=== PATIENT | female | born 1985 | race Caucasian/White ===

== ENCOUNTER 2020-01-21 10:52 | Outpatient (CLI) | payer OTHER, SELFPAY ==
[2020-01-21 11:21] LABS: Basophils Percent Auto 0.4 % (0.2-1.2); Eosinophils Absolute Auto 0.2 K/mm3 (0-0.3); Eosinophils Percent Auto 1.5 % (0-4.4); Hematocrit 34.8 % (37.0-47.0); Hemoglobin 11.7 g/dL (12.0-15.0); Immature Granulocyte Absolute 0.04 K/mm3 (0.00-0.031); Immature Granulocyte Percent A 0.4 % (0-0.5); Lymphocytes Absolute Auto 2.26 K/mm3 (0.9-3.2); Lymphocytes Percent Auto 22.3 % (18.3-44.2); Mean Corpuscular HGB Conc 33.6 g/dl (32-36); Mean Corpuscular Hemoglobin 32.1 pg (26-34); Mean Corpuscular Volume 95.6 fl (80-100); Mean Platelet Volume 10.3 fl (7.4-10.4); Monocytes Absolute Auto 0.6 K/mm3 (0.1-0.6); Monocytes Percent Auto 5.4 % (2.6-8.5); Neutrophils Absolute Auto 7.1 K/mm3 (1.3-6.7); Platelet Count Result 357 k/mm3 (150-375); Red Blood Count 3.64 M/mm3 (4.2-5.4); Red Cell Distribution Width 11.7 % (11.5-14.5); White Blood Count 10.1 K/mm3 (4.5-10.0)
[2020-01-21 11:28] LABS: Add Urine Microscopic? YES; Appearance Urine Clear (Clear); Bacteria Urine Trace /hpf; Bilirubin Urine Negative (Negative); Blood Urine Negative (Negative); Color Urine Yellow (Yellow); Glucose Urine UA Negative (Negative); Ketones Urine Negative (Negative); Leukocyte Esterase Ur Trace LEU/UL (NEGATIVE); Mucus Urine Rare /lpf; Nitrate Urine Negative (Negative); Protein Urine Negative (Negative); RBC Urine 0-2 /hpf (0-2); Specific Grav Ur 1.019 (1.001-1.035); Squamous Epithelial Cell Urine Many /hpf (Few); Urobilinogen Urine Negative mg/dL (<2.0); WBC Urine 0-3 /hpf (0-3)
[2020-01-21 12:10] LABS: Vitamin D 25 Hydroxy 34.3 ng/mL
[2020-01-21 12:24] LABS: Hepatitis B Surface Antigen Negative (Negative)
[2020-01-21 12:40] LABS: Hepatitis C Virus Antibody Negative (Negative)
[2020-01-22 08:21] LABS: Rapid Plasma Reagin Non-Reactive (NonReactive)
[2020-01-26 23:52] LABS: Hematocrit 35.6 % (35.0-45.0); Hemoglobin 11.9 g/dL (11.7-15.5); MCH 32.8 pg (27.0-33.0); MCV 97.9 FL (80.0-100.0); RDW 12.2 % (11.0-15.0); Red Blood Cell Count 3.64 Mill/uL (3.80-5.10)
[2020-01-28 19:01] LABS: CF Result NEGATIVE (NEGATIVE)
== END 2020-01-21 10:53 | disposition home or self-care (01) ==
LOC: ANHLAB 10:54
PROVIDERS: PCP Obstetrics & Gynecology; Visit Provider Obstetrics & Gynecology
DX: Z34.90 Encounter for supervision of normal pregnancy, unspecified, unspecified trimester (principal); Z3A.00 Weeks of gestation of pregnancy not specified
CPT/HCPCS: 36415; 81001; 81220; 81243; 82306; 83021; 84443; 85025; 86592; 86762; 86787; 86803; 87086; 87340

== ENCOUNTER 2020-01-29 15:01 | Outpatient (CLI) | payer OTHER, SELFPAY ==
--- NOTE | ~2020-01-29 | US_ITS ---
EXAMINATION: US OB follow up DATE: 01/29/2020 16:03 INDICATION: Uncertain dates. TECHNIQUE: Real-time ultrasound of the pelvis was performed. COMPARISON: None. FINDINGS: There is a single living fetus in vertex presentation. The placenta is posterior. heart rate i s 150 beats per minute (bpm). The amniotic fluid volume is subjectively normal. The following biometric data were obtained: Biparietal diameter (BPD): 3.4 cm; head circumference (HC): 12.6 cm; abdominal circumference (AC): 9. 2 cm; femur length (FL): 2.0 cm. These measurements are discordant with high HC/AC ratio. Estimated weight is 135 g +/- 20 g. As single measurements, these parameters are each equal to the following estimated gestational ages: BPD: 16 weeks 4 days. HC: 16 weeks 3 days. AC: 15 weeks 3 days. FL: 16 weeks 0 days. estimated gestational age based solely on measurements from this exam is 16 weeks 1 days +/- 1 weeks 1 days. IMPRESSION: 1. Single living fetus in vertex presentation. 2. Estimated weight is 135 g +/- 20 g with estimated date of delivery of 07/14/2020. 3. Discordant biometrics with high HC/AC ratio. Reviewed, dictated and finalized at location A.
== END 2020-01-29 15:02 | disposition home or self-care (01) ==
LOC: ANHIMG 15:05
PROVIDERS: PCP Obstetrics & Gynecology; Visit Provider Obstetrics & Gynecology
DX: Z32.01 Encounter for pregnancy test, result positive (principal); Z3A.16 16 weeks gestation of pregnancy
CPT/HCPCS: 76816

== ENCOUNTER 2020-04-20 08:39 | Outpatient (CLI) | payer OTHER, SELFPAY ==
[2020-04-20 09:50] LABS: Basophils Absolute Auto 0.04 K/mm3 (0.00-0.10); Basophils Percent Auto 0.3 % (0.0-1.0); Eosinophils Absolute Auto 0.14 K/mm3 (0.02-0.50); Eosinophils Percent Auto 1.1 % (1.0-6.0); Hemoglobin 10.6 g/dL (12.0-15.0); Immature Granulocyte Absolute 0.06 K/mm3 (0.00-0.00); Immature Granulocyte Percent A 0.5 % (0.0-0.0); Lymphocytes Absolute Auto 1.61 K/mm3 (1.10-4.50); Lymphocytes Percent Auto 13.2 % (18.0-42.0); Mean Corpuscular HGB Conc 33.1 g/dL (32.0-36.0); Mean Corpuscular Volume 96.7 fL (78.0-102.0); Mean Platelet Volume 9.5 fl (9.2-11.8); Monocytes Absolute Auto 0.91 K/mm3 (0.10-0.90); Monocytes Percent Auto 7.4 % (2.0-11.0); Neutrophils Absolute Auto 9.5 K/mm3 (1.7-7.2); Neutrophils Percent Auto 77.5 % (50.0-70.0); Platelet Count Result 293 K/mm3 (150-420); Red Blood Count 3.31 M/mm3 (4.20-5.40); Red Cell Distribution Width 11.9 % (11.6-14.4); White Blood Count 12.2 K/mm3 (4.8-10.8)
[2020-04-20 10:35] LABS: Glucose 1 Hour PP 50gm Dose 103 mg/dL (70-130)
== END 2020-04-20 08:40 | disposition home or self-care (01) ==
PROVIDERS: PCP Obstetrics & Gynecology; Visit Provider Obstetrics & Gynecology
DX: Z32.01 Encounter for pregnancy test, result positive (principal)
CPT/HCPCS: 36415; 82947; 85025

== ENCOUNTER 2020-04-26 15:58 | Outpatient (CLI) | payer OTHER, SELFPAY ==
[2020-04-26 16:28] LABS: Basophils Percent Auto 0.3 % (0.2-1.2); Eosinophils Absolute Auto 0.2 K/mm3 (0-0.3); Eosinophils Percent Auto 2.1 % (0-4.4); Hematocrit 30.6 % (37.0-47.0); Hemoglobin 10.4 g/dL (12.0-15.0); Immature Granulocyte Absolute 0.04 K/mm3 (0.00-0.031); Immature Granulocyte Percent A 0.3 % (0-0.5); Lymphocytes Absolute Auto 2.28 K/mm3 (0.9-3.2); Lymphocytes Percent Auto 19.7 % (18.3-44.2); Mean Corpuscular Hemoglobin 31.8 pg (26-34); Mean Corpuscular Volume 93.6 fl (80-100); Mean Platelet Volume 9.8 fl (7.4-10.4); Monocytes Absolute Auto 0.7 K/mm3 (0.1-0.6); Neutrophils Absolute Auto 8.3 K/mm3 (1.3-6.7); Neutrophils Percent Auto 71.6 % (45.5-73.1); Platelet Count Result 421 k/mm3 (150-375); Red Blood Count 3.27 M/mm3 (4.2-5.4); Red Cell Distribution Width 11.9 % (11.5-14.5); White Blood Count 11.6 K/mm3 (4.5-10.0)
[2020-04-26 16:33] LABS: Alanine Aminotransferase 43 U/L (4-35); Albumin Level 3.6 g/dL (3.5-5.1); Alkaline Phosphatase 97 U/L (38-126); Aspartate Amino Transferase 39 U/L (14-36); Bilirubin,Total 0.2 mg/dL (0.2-1.3)
[2020-04-26 18:23] LABS: HIV 1/2 Ab P24 Ag Result Negative (Negative)
[2020-04-27 07:36] LABS: Rapid Plasma Reagin Non-Reactive (NonReactive)
[2020-05-02 10:55] LABS: Chenodeoxycholic Acid 1.8 umol/L (< OR = 3.9); Cholic Acid 0.5 umol/L (< OR = 2.8); Deoxycholic Acid 0.5 umol/L (< OR = 2.3); Total Bile Acids 2.9 umol/L (< OR = 8.3)
== END 2020-04-26 15:59 | disposition home or self-care (01) ==
LOC: ANHLAB 16:00
PROVIDERS: PCP Obstetrics & Gynecology; Visit Provider Obstetrics & Gynecology
DX: Z34.93 Encounter for supervision of normal pregnancy, unspecified, third trimester (principal); Z3A.28 28 weeks gestation of pregnancy
CPT/HCPCS: 36415; 80076; 82542; 85025; 86592; 86703; G0432

== ENCOUNTER 2020-05-20 15:26 | Outpatient (CLI) | payer OTHER, SELFPAY ==
[2020-05-20 16:13] LABS: Alanine Aminotransferase 21 U/L (14-59); Albumin Level 2.8 g/dL (3.4-5.0); Alkaline Phosphatase 96 U/L (46-116); Aspartate Amino Transferase 17 U/L (15-37); Bilirubin,Total 0.2 mg/dL (0.00-1.00); Total Protein 6.3 g/dL (6.4-8.2)
[2020-05-20 16:22] LABS: Bilirubin Direct 0.1 mg/dL (0-0.2)
[2020-05-20 18:01] LABS: HIV 1 P24 AG Negative (Negative); HIV 1/2 AB Negative (Negative)
[2020-05-23 11:30] LABS: RPR Screen Non-Reactive (Non-Reactive)
[2020-05-25 19:36] LABS: Hepatitis A Antibody IgM Nonreactive; Hepatitis B Core Antibody Nonreactive (Nonreactive); Hepatitis B Surface Antigen Nonreactive (Nonreactive); Hepatitis C Signal to Cutoff 0.01 ratio (<1.00); Hepatitis C Virus Antibody Nonreactive (Nonreactive)
== END 2020-05-20 15:27 | disposition home or self-care (01) ==
LOC: CHSLAB 15:28
PROVIDERS: PCP Obstetrics & Gynecology; Visit Provider Obstetrics & Gynecology
DX: Z34.90 Encounter for supervision of normal pregnancy, unspecified, unspecified trimester (principal)
CPT/HCPCS: 36415; 80074; 80076; 86592; 86703

== ENCOUNTER 2020-06-03 14:50 | Outpatient (CLI) | payer OTHER, SELFPAY ==
[2020-06-03] MEDS: TETANUS,DIPHTHERIA,AC PERTUSSIS ADULT (0.5 ML) BOOSTRIX IM (16:30)
== END 2020-06-03 14:51 | disposition home or self-care (01) ==
LOC: ANHOBOP 15:03
PROVIDERS: Visit Provider Obstetrics & Gynecology
DX: Z34.90 Encounter for supervision of normal pregnancy, unspecified, unspecified trimester (principal); Z3A.00 Weeks of gestation of pregnancy not specified
CPT/HCPCS: 90715

== ENCOUNTER 2020-06-29 13:53 | Outpatient (CLI) | payer OTHER, SELFPAY | END 2020-06-29 15:45 | disposition home or self-care (01) | LOC: ANHOBOP 15:15 | PROVIDERS: Visit Provider Obstetrics & Gynecology | DX: Z34.93 Encounter for supervision of normal pregnancy, unspecified, third trimester (principal); Z3A.37 37 weeks gestation of pregnancy; Z23 Encounter for immunization | CPT/HCPCS: 90471; 90653; G0008 ==

== ENCOUNTER 2020-07-06 12:20 | Outpatient (RCR) | payer OTHER, SELFPAY ==
[2020-06-03 16:44] VITALS: BP 118/69
[2020-06-10 15:15] VITALS: BP 124/67; PULSE 96
[2020-06-15 12:52] VITALS: BP 127/72; PULSE 77
[2020-06-22 10:24] VITALS: BP 119/68; PULSE 81
[2020-06-29 14:49] VITALS: BP 117/62; PULSE 70
--- NOTE | 2020-06-29 15:30 | PC.NURSE ---
called Dr. Alvarado updated ultrasound result of SUDHEER 6.6, and EFW of 2857gm which is 20th percentile. okay to discharge, repeat SUDHEER and NST on Saturday.
[2020-07-02 15:20] VITALS: BP 130/75; PULSE 83
--- NOTE | ~2020-07-06 | US_ITS ---
US OB limited 06/03/2020 16:15 Indication: Evaluate amniotic fluid index. Rash. Procedure: Real-time Limited obstetrical ultrasound Comparison: 01/29/2020 Findings: There is a single living intrauterine in vertex presentation. heart rate is 130 BPM. Placenta is fundal. SUDHEER is normal measuring 12.1 cm (normal range for gestational age is 8. 1-24.8 cm). Impression: 1: Single living intrauterine in vertex presentation. 2: Normal SUDHEER measures 12.1 cm. Reviewed, dictated and finalized at location A. CONCESSION MANAGER Impression: 1: Single living intrauterine in vertex presentation. 2: Normal SUDHEER measures 12.1 cm.
--- NOTE | ~2020-07-06 | US_ITS ---
EXAMINATION: US OB follow up w BPP DATE: 06/29/2020 15:07 INDICATION: PUPS rash. Evaluate biophysical profile, amniotic fluid index and estimate weight. TECHNIQUE: Real-time pelvic ultrasound was performed. The interpreting radiologist was not present fo r the study. COMPARISON: None. FINDINGS: There is a single living fetus in vertex presentation. The placenta is posterior. heart rate i s 169 beats per minute (bpm). Oligohydramnios with amniotic fluid index measuring 6.6 cm (2.5%-5th%-9 5%: 6.6-7.5-24.4 cm at T7 weeks estimated gestational age) Biophysical profile performed by the technologist: breathing (30 sec sustained breathing in 30 minutes): 2 out of 2 movement (3 gross body movements in 30 minutes): 2 out of 2 tone (one episode of sqbuqfr-cqqipvfqt-dboifae limb movement): 2 out of 2 Amniotic fluid pocket (2 cm): 2 out of 2 Total score: 8 out of 8 IMPRESSION: 1. Single living fetus in vertex presentation with heart rate of 169 bpm. 2. Biophysical profile 8 out of 8. 3. Oligohydramnios with amniotic fluid index of 6.6 cm which is 3 standard deviations below the mean. Assess for possibility of leaking fluids. Reviewed, dictated and finalized at location A. ER REPAIRMAN IMPRESSION: 1. Single living fetus in vertex presentation with heart rate of 169 bpm. 2. Biophysical profile 8 out of 8. 3. Oligohydramnios with amniotic fluid index of 6.6 cm which is 3 standard radha ations below the mean. Assess for possibility of leaking fluids.
--- NOTE | ~2020-07-06 | US_ITS ---
EXAMINATION: US OB limited w BPP DATE: 07/06/2020 13:01 INDICATION: Pruritic urticarial papules and plaques of . Third trimester. TECHNIQUE: Real-time pelvic ultrasound was performed. COMPARISON: Ultrasound 07/02/2020 FINDINGS: There is a single living fetus in vertex presentation. The placenta is posterior. heart rate i s 140 beats per minute (bpm). The amniotic fluid index is 9.6 cm, which is normal. Biophysical profile performed by the technologist: breathing (30 sec sustained breathing in 30 minutes): 2 out of 2 movement (3 gross body movements in 30 minutes): 2 out of 2 tone (one episode of ljgbgpn-hmucqkyfk-rfizjwf limb movement): 2 out of 2 Amniotic fluid pocket (2 cm): 2 out of 2 Total score: 8 out of 8 IMPRESSION: 1. Single living fetus in vertex presentation. 2. Biophysical profile 8 out of 8. Reviewed, dictated and finalized at location B. RAL LOT ATTENDANT
--- NOTE | ~2020-07-06 | US_ITS ---
US OB limited 07/02/2020 15:15 Indication: Evaluate amniotic fluid index. Procedure: High-resolution Limited obstetrical ultrasound Comparison: 06/29/2020 Findings: There is a single living intrauterine in vertex presentation. heart rate is 137 BPM. Amniotic fluid is at lower limits of normal measuring 7.5 cm (normal range 7.3-23.9 cm). Pl acenta is posterior without previa. Impression: 1: SUDHEER lower limits of normal measuring 7.5 cm. Reviewed, dictated and finalized at location A. ENT NURSE Impression: 1: SUDHEER lower limits of normal measuring 7.5 cm.
[2020-07-06 13:50] VITALS: BP 127/79; PULSE 80
== END 2020-07-13 12:01 | disposition home or self-care (01) ==
LOC: ANHOBOP 12:20
PROVIDERS: Visit Provider Obstetrics & Gynecology
DX: O99.891 Other specified diseases and conditions complicating pregnancy (principal); R21 Rash and other nonspecific skin eruption; Z3A.34 34 weeks gestation of pregnancy
CPT/HCPCS: 59025; 76815; 76816; 76819; 90715

== ENCOUNTER 2020-07-12 16:08 | Inpatient (IN) | payer OTHER, SELFPAY ==
[2020-07-12] VITALS (11 sets, daily range): BP systolic 121–173; BP diastolic 60–107; PULSE 68–92; TEMP 36.8–36.9
--- NOTE | 2020-07-12 16:21 | LDADM ---
This patient, Vivi Gil, was admitted to Labor/Delivery/Recovery 108 on 07/12/20 at 16:08. Plans for labor, pain management and were discussed with patient. Patient/family oriented to hospital policies and general routines including ID bracelet, bed and alarms, visiting hours, pain management, procedures, bathroom and other care routines, personal items, smoking policy, room service/diet and guest tray routines, security routines, and visiting hours. Patient/Family are encouraged to report perceived risks to care and to ask questions if they do not understand what they are told or what they should do. See OBIX for further documentation.
[2020-07-12 16:43] LABS: Basophils Percent Auto 0.4 % (0.2-1.2); Eosinophils Absolute Auto 0.1 K/mm3 (0-0.3); Eosinophils Percent Auto 0.8 % (0-4.4); Hemoglobin 11.7 g/dL (12.0-15.0); Immature Granulocyte Absolute 0.08 K/mm3 (0.00-0.031); Immature Granulocyte Percent A 0.7 % (0-0.5); Lymphocytes Absolute Auto 1.94 K/mm3 (0.9-3.2); Lymphocytes Percent Auto 17.4 % (18.3-44.2); Mean Corpuscular HGB Conc 33.4 g/dl (32-36); Mean Corpuscular Hemoglobin 31.5 pg (26-34); Mean Corpuscular Volume 94.3 fl (80-100); Mean Platelet Volume 10.6 fl (7.4-10.4); Monocytes Absolute Auto 0.8 K/mm3 (0.1-0.6); Monocytes Percent Auto 7.1 % (2.6-8.5); Neutrophils Absolute Auto 8.2 K/mm3 (1.3-6.7); Neutrophils Percent Auto 73.6 % (45.5-73.1); Platelet Count Result 288 k/mm3 (150-375); Red Blood Count 3.71 M/mm3 (4.2-5.4); Red Cell Distribution Width 12.7 % (11.5-14.5); White Blood Count 11.1 K/mm3 (4.5-10.0)
[2020-07-12] MEDS: LACTATED RINGERS 1,000 ML 125 ML IV CONT (16:44)
[2020-07-12] MEDS: AMPICILLIN 2 GM/NS 100 ML 2 GM/100 ML BAG IVPB (16:45)
--- NOTE | 2020-07-12 16:47 | WPDANESEPP ---
Anes - Eval Pre Procedure Procedure: labor epidural Date/Time: 07/12/20 16:47 Surgeon: mundo Pre Op Diagnosis: Induction of Labor Patient Data Age: 34 Gender: F Height: Weight: Allergies Allergy/AdvReac Type Severity Reaction Status Date / Time No Known Allergies Allergy Mild Verified 07/06/20 11:36 Home Medications Medication Instructions Recorded Confirmed Type vitamins no.119-iron 1 tablet PO DAILY #90 tablet 12/31/19 07/12/20 Rx fumarate 29 mg-folic acid 1 mg tablet sertraline 50 mg tablet 50 mg PO DAILY 04/09/20 07/12/20 History ferrous sulfate 325 mg (65 mg 325 mg PO DAILY #30 tablet 04/20/20 07/12/20 Rx iron) tablet sertraline 100 mg PO DAILY 06/22/20 07/12/20 History Laboratory Tests 07/12/20 07/12/20 07/12/20 16:32 16:32 16:32 WBC 11.1 K/mm3 H K/mm3 (4.5-10.0) RBC 3.71 M/mm3 L M/mm3 (4.2-5.4) Hgb 11.7 g/dL L g/dL (12.0-15.0) Hct 35.0 % L % (37.0-47.0) MCV 94.3 fl fl (80-100) MCH 31.5 pg pg (26-34) MCHC 33.4 g/dl g/dl (32-36) RDW 12.7 % % (11.5-14.5) Plt Count 288 k/mm3 k/mm3 (150-375) MPV 10.6 fl H fl (7.4-10.4) Immature Gran % (Auto) 0.7 % H % (0-0.5) Neut % (Auto) 73.6 % H % (45.5-73.1) Lymph % (Auto) 17.4 % L % (18.3-44.2) [place] % (Auto) 7.1 % % (2.6-8.5) Eos % (Auto) 0.8 % % (0-4.4) Baso % (Auto) 0.4 % % (0.2-1.2) Lymph # (Auto) 1.94 K/mm3 K/mm3 (0.9-3.2) [place] # (Auto) 0.8 K/mm3 H K/mm3 (0.1-0.6) Eos # (Auto) 0.1 K/mm3 K/mm3 (0-0.3) Baso # (Auto) 0.0 K/mm3 K/mm3 (0.0-0.1) Abs Immat Gran (auto) 0.08 K/mm3 H K/mm3 (0.00-0.031) Absolute Neuts (auto) 8.2 K/mm3 H K/mm3 (1.3-6.7) Absolute Nucleated RBC 0.0 K/mm3 K/mm3 (0.0-0.012) Nucleated RBC % 0.0 % % (0.0-0.2) Urine Opiates Screen Pending Urine Methadone Screen Pending Ur Barbiturates Screen Pending Ur Phencyclidine Scrn Pending Ur Amphetamine Screen Pending U Benzodiazepines Scrn Pending Urine Cocaine Screen Pending U Cannabinoids Screen Pending RPR Pending Patient hx anesthesia problems: none Family hx anesthesia problems: none PMFSH Past Medical History Medical History (Updated 07/07/20 @ 05:42 by Omer Alvarado MD) Anemia Anxiety Asthma Depression Surgical History Surgical History No significant past surgical history Family History Family History Grandparent Diabetes mellitus Heart attack Social History Social History Years smoked: 12 Smoking status: Current every day smoker Tobacco type: cigarettes Alcohol intake: never Substance use: current Substance use type: marijuana Last use: Jun 2020 Gender identity (if verbalized by the patient): Female Sexual Orientation (if Verbalized by the Patient): Straight or Heterosexual Spiritual care concerns: No Exam Day of Procedure 07/12/20 16:47
[2020-07-12] MEDS: DINOPROSTONE 10 MG VAG INSERT VAGINAL (16:57)
[2020-07-12 17:08] LABS: Amphetamine Screen Urine Negative (Negative); Barbiturate Screen Urine Negative (Negative); Benzodiazepines Screen Urine Negative (Negative); Cannabinoid Screen Urine Positive (Negative); Cocaine Screen Urine Negative (Negative); Methadone Screen Urine Negative (Negative); Opiate Screen Urine Negative (Negative); Phencyclidine Screen Urine Negative (Negative)
[2020-07-12] MEDS: AMPICILLIN 1 GM/NS 50 ML 1 GM/50 ML BAG IVPB (20:44)
[2020-07-12] MEDS: ONDANSETRON INJ 4 MG/2 ML VIAL IV PUSH (23:49)
[2020-07-13] VITALS (50 sets, daily range): BP systolic 107–162; BP diastolic 53–103; PULSE 66–126; RESP 14–16; TEMP 36.2–36.8; O2SAT 96–100
[2020-07-13] MEDS: AMPICILLIN 1 GM/NS 50 ML 1 GM/50 ML BAG IVPB (00:49)
[2020-07-13] MEDS: LACTATED RINGERS 1,000 ML 125 ML IV CONT (01:29)
[2020-07-13] MEDS: OXYTOCIN 30 UNITS/NS 500 ML 30 UNITS/500 ML BAG 999 UNITS IV CONT (01:36)
--- NOTE | 2020-07-13 02:42 | PM.IMHP ---
H&P: HPI History of Present Illness Date/Time: 07/13/20 02:42 Chief Complaint: Induction of labor. Narrative: Vivi Gil is a 34 year old female at 39 weeks admitted for [facility]. PNC significant for PUPPS, tobacco abuse, marijuana use, history of depression stable with medication and counseling. She has been getting surveillance due to the PUPPS which has been reassuring. She has been informed of risk and benefit of induction versus spontaneous labor and has opted for induction of labor. She plans to get Depo-Provera prior to discharge for control. Review of Systems Review of Systems: All systems reviewed & are unremarkable except as noted in HPI and below Constitutional: Constitutional: Reports no additional constitutional complaints and Denies headache(s) Eyes: Eyes: Denies spots in vision ENT: Reports system reviewed and no additional complaints, except as documented and Denies headache(s) Cardiovascular: Cardiovascular: Denies chest pain and Denies dyspnea Respiratory: Respiratory: Denies dyspnea Gastrointestinal: Gastrointestinal: Reports no additional gastrointestinal complaints Genitourinary: Genitourinary: Reports amenorrhea Musculoskeletal: Musculoskeletal: Reports no additional musculoskeletal complaints Integumentary/Breasts: Skin/Breast: Denies breast mass and Denies rash Neurologic: Denies headache(s) Psychiatric: Psychiatric: Reports no additional psychiatric complaints PMFSH Past Medical History Medical History Anemia Anxiety Asthma Depression Surgical History Surgical History No significant past surgical history Family History Family History Grandparent Diabetes mellitus Heart attack Social History Social History Years smoked: 12 Smoking status: Current every day smoker Tobacco type: cigarettes Alcohol intake: never Substance use: current Substance use type: marijuana Last use: Jun 2020 Gender identity (if verbalized by the patient): Female Sexual Orientation (if Verbalized by the Patient): Straight or Heterosexual Spiritual care concerns: No Meds Home Medications and Allergies Home Medications Medication Instructions Recorded Confirmed Type vitamins no.119-iron 1 tablet PO DAILY #90 tablet 12/31/19 07/12/20 Rx fumarate 29 mg-folic acid 1 mg tablet sertraline 50 mg tablet 50 mg PO DAILY 04/09/20 07/12/20 History ferrous sulfate 325 mg (65 mg 325 mg PO DAILY #30 tablet 04/20/20 07/12/20 Rx iron) tablet sertraline 100 mg PO DAILY 06/22/20 07/12/20 History Allergies Allergy/AdvReac Type Severity Reaction Status Date / Time No Known Allergies Allergy Mild Verified 07/06/20 11:36 Vital Signs Vital Signs - 24 hr 07/12/20 17:00 07/12/20 17:01 07/12/20 17:30 Temperature 98.4 F Pulse Rate 79 73 Blood Pressure 146/77 H 131/60 Pulse Oximetry 07/12/20 18:00 07/12/20 18:30 07/12/20 19:00 Temperature Pulse Rate 77 74 78 Blood Pressure 134/65 121/66 128/67 Pulse Oximetry 07/12/20 20:45 07/12/20 23:24 07/12/20 23:30 Temperature 98.3 F Pulse Rate 72 68 Blood Pressure 148/80 H 131/81 Pulse Oximetry 07/12/20 23:45 07/12/20 23:49 07/13/20 00:00 Temperature Pulse Rate 92 79 77 Blood Pressure 173/107 H 139/91 H 142/84 H Pulse Oximetry 07/13/20 00:15 07/13/20 00:30 07/13/20 00:56 Temperature Pulse Rate 80 88 Blood Pressure 145/80 H 162/81 H Pulse Oximetry 99 07/13/20 01:00 07/13/20 01:01 07/13/20 01:03 Temperature Pulse Rate 76 78 Blood Pressure 133/103 H 138/82 Pulse Oximetry 100 07/13/20 01:05 07/13/20 01:06 07/13/20 01:08 Temperature Pulse Rate 73 72 Blood Pressure 154/90 H 127/77 Pulse Oximet
--- NOTE | 2020-07-13 02:49 | PM.OBPRVD ---
OB - Delivery Note Procedure Delivery date: 07/13/20 Procedure: Spontaneous vaginal delivery events: Labor Induction (History of PUPPS) Induction method: per cervidil protocol Delivery monitor: external FHT Route of delivery: Episiotomy description: None Laceration Description: None Quantitative Blood Loss (ml): 150 Anesthesia type: Epidural Disposition: floor Narrative: She was admitted for MIL. Cervidil was initiated. She had SROM clear fluid at 0039. She progressed rapidly to active labor. She requested epidural which was started. She progressed complete. She pushed once and delivered a male infant. was placed on maternal abdomen. Delayed cord clamping for 30sec and cord doubly clamped and cut. Placenta delivered spontaneously and intact. No laceration. Baby Date of : 07/13/20 Time of : 02:29 Weeks of gestation at delivery: 39 Infant gender: Male Weight (pounds): 6 Weight (ounces): 13 presentation: vertex position: Right Occiput Anterior Placenta delivery description: Spontaneous score one minute: 9 score five minutes: 9
[2020-07-13] MEDS: WITCH HAZEL 40 PADS 1 PAD TOPICAL (03:08)
[2020-07-13] MEDS: OXYTOCIN 30 UNITS/NS 500 ML 30 UNITS/500 ML BAG 125 UNITS IV CONT (03:08)
[2020-07-13] MEDS: BENZOCAINE 20% AER SPR (*SP) 56 GM CAN 1 SPRAY TOPICAL (03:08)
--- NOTE | 2020-07-13 05:15 | OBPPTRN ---
Patient transferred to post room #285 via wheelchair. Support person (sister) present. Oriented to unit, room, information board, rooming in, admission packet and security measures. Patient verbalizes understanding. Infant with patient.
[2020-07-13] MEDS: IBUPROFEN 600 MG TABLET PO ×2 (07:43→17:50)
[2020-07-13] MEDS: MULTIVIT/MIN/PREN/FOL AC/IRON TABLET 1 TAB PO (07:44)
--- NOTE | 2020-07-13 07:44 | WPDANLDPN2 ---
Anes-Prog Note L&D Date/Time: 07/13/20 07:44 Comfortable throughout: labor and delivery Neuraxial method: epidural Epidural/Spinal procedure site: clean & non-tender Neuro status: Neuro function grossly intact. Cardiovascular status: normal Respiratory status: normal Airway patency: baseline Mental status: baseline Post-Op hydration status: normal Vital Signs: Last Vital Signs Temp 97.9 F 07/13/20 05:15 Pulse 81 07/13/20 05:15 Resp 16 07/13/20 05:15 BP 143/76 H 07/13/20 05:15 Pulse Ox 99 07/13/20 05:15 Pain score (VAS): 0/10 I/O: Intake & Output 07/12/20 07/12/20 07/13/20 15:59 23:59 07:59 Intake Total 150 1050 Output Total 72 Balance 150 978 Post-procedural complaints: none Patient feedback: Patient satisfied with anesthetic care.
[2020-07-13] MEDS: DOCUSATE SODIUM 100 MG CAPSULE PO ×2 (07:45→17:51)
[2020-07-13 10:37] LABS: Rapid Plasma Reagin Non-Reactive (NonReactive)
--- NOTE | 2020-07-13 13:35 | PCCCNOTE ---
Addendum entered by Melissa Perdomo 07/13/20 15:59: 1600: CC received an email from [facility] stating that pt.'s report will be taken as information and there will be no investigation at this time. Pt.'s RN has been informed. Original Note: Care Coordination spoke with pt. over the phone this afternoon to discuss discharge planning. Pt.'s current discharge plan is to return home with her mother and other child. Pt. states that her mother is supportive and FOB and her sister also live locally to assist if needed. Pt. has everything she requires to safely bring baby home. Pt. states she will bottle feed baby and is current with [facility]. Pt. has not found a casino floorperson for baby at this time. Pt. states she has no prior DCFS cases open and she has no concerns regarding bringing baby home. Pt. tested positive for THC at time of DC, pt. states she uses Marijuana to assist with her anxiety. Baby has been tested and results are pending. Pt. was informed that a DCFS report will be made for her drug use, pt. became agitated and hung up the phone. CC made online DCFS report, case intake number [id number]. Will follow.
[2020-07-14 04:58] LABS: Hematocrit 31.3 % (37.0-47.0); Hemoglobin 10.4 g/dL (12.0-15.0)
[2020-07-14 08:10] VITALS: BP 139/84; PULSE 73; RESP 18; TEMP 37; O2SAT 98
--- NOTE | 2020-07-14 08:13 | WPDANLDPN2 ---
Anes-Prog Note L&D Date/Time: 07/14/20 08:13 Comfortable throughout: labor and delivery Neuraxial method: epidural Epidural/Spinal procedure site: clean & non-tender Neuro status: Neuro function grossly intact. Cardiovascular status: normal Respiratory status: normal Airway patency: baseline Mental status: baseline Post-Op hydration status: normal Vital Signs: Last Vital Signs Temp 36.2 C L 07/13/20 19:15 Pulse 73 07/13/20 19:15 Resp 16 07/13/20 19:15 BP 144/73 H 07/13/20 19:15 Pulse Ox 99 07/13/20 19:15 Pain score (VAS): 1 Post-procedural complaints: none Patient feedback: Patient satisfied with anesthetic care.
[2020-07-14 10:29] LABS: Hematocrit 35.7 % (37.0-47.0); Hemoglobin 11.8 g/dL (12.0-15.0); Mean Corpuscular HGB Conc 33.1 g/dl (32-36); Mean Corpuscular Hemoglobin 31.5 pg (26-34); Mean Corpuscular Volume 95.2 fl (80-100); Mean Platelet Volume 10.2 fl (7.4-10.4); Platelet Count Result 276 k/mm3 (150-375); Red Blood Count 3.75 M/mm3 (4.2-5.4); Red Cell Distribution Width 12.9 % (11.5-14.5); White Blood Count 9.7 K/mm3 (4.5-10.0)
[2020-07-14 10:45] LABS: Alanine Aminotransferase 19 U/L (4-35); Albumin Level 3.5 g/dL (3.5-5.1); Alkaline Phosphatase 127 U/L (38-126); Anion Gap 1 mmol/L (8-16); Aspartate Amino Transferase 40 U/L (14-36); Bilirubin,Total 0.3 mg/dL (0.2-1.3); Blood Urea Nitrogen 9 mg/dL (7-17); Calcium 9.1 mg/dL (8.4-10.2); Carbon Dioxide 29 mmol/L (22-30); Chloride 104 mmol/L (98-107); Estimated Glomerular Filt Rate > 60; Glucose 95 mg/dL (65-105); Potassium 4.7 mmol/L (3.4-5.0); Sodium 134 mmol/L (137-145); Uric Acid 4.7 mg/dL (2.5-7.5)
[2020-07-14 11:45] VITALS: BP 124/62; PULSE 87; RESP 18; TEMP 36.5; O2SAT 100
[2020-07-14] MEDS: medroxyPROGESTERone ACETATE IM 150 MG/ML SYR IM (15:16)
[2020-07-14] MEDS: MEASLES,MUMPS,RUBELLA VACCINE 0.5 ML VIAL SUB-Q (15:21)
--- NOTE | 2020-07-14 16:58 | PC.NURSE ---
0871 Patient drove herself home from hospital. Patient had no pain medication prior to driving. was secured in car seat and was belted into the car using the seat belt.
--- NOTE | 2020-07-14 21:54 | PM.OBPNVD ---
OB - PN: Subj Subjective Date/time seen: 07/14/20 1500. She is bottle feeding. No headache scotomata or RUQ pain. Patient comments: pain well controlled, tolerating diet and other (Decreasing lochia.) [place] baby status: doing well OB - PN: Obj Data Labs CBC & Chem 7: 07/14/20 10:22 07/14/20 10:22 Labs: Laboratory Results - last 24 hr 07/14/20 07/14/20 07/14/20 03:31 10:22 10:22 WBC 9.7 RBC 3.75 L Hgb 10.4 L 11.8 L Hct 31.3 L 35.7 L MCV 95.2 MCH 31.5 MCHC 33.1 RDW 12.9 Plt Count 276 MPV 10.2 Sodium 134 L Potassium 4.7 Chloride 104 Carbon Dioxide 29 Anion Gap 1 L BUN 9 Creatinine 0.70 Estim Creat Clear Calc Not Reportable Estimated GFR > 60 Glucose 95 Uric Acid 4.7 Calcium 9.1 Total Bilirubin 0.3 AST 40 H ALT 19 Alkaline Phosphatase 127 H Total Protein 7.0 Albumin 3.5 OB - PN A/P Plan day: 1 Plan: routine care Comments: Patient doing well. Labile blood pressure. No signs or symptoms of pre-eclampsia. Labs showed a mildly elevated lft which she has had in the past and afternoon blood pressures normal. She desires discharge. Will discharge home. Discharge precautions. She desires Depo Provera for control prior to discharge. Time Spent With Patient Time: Total time spent is greater than 50% in coordination of care (as documented) at patient's floor/unit and/or counseling patient: Exam Extrem: General: normal to inspection Psych: Affect: normal affect Other: Abd: fundus firm below umbilicus, nontender Ext: nontender
[2020-07-15 15:27] VITALS: BP 135/86; PULSE 82; RESP 20; TEMP 37; O2SAT 100
--- NOTE | 2020-07-27 11:38 | PM.OBDSVD ---
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 - Carrier of Group B streptococcus Status: Acute OB - DS: Summary OB Procedures : NST and Ultrasound OB Procedures Intrapartum: Spontaneous Vag Delivery OB Procedures: : None Time Spent with Patient Time attestation: Total time spent providing and/or coordinating discharge services: Exam Const: General: comfortable and no acute distress Eyes: General: appearance normal, both eyes and all related structures Resp: Effort & Inspection: normal respiratory effort GI: Inspection: normal to inspection Psych: Affect: normal affect Other: Abd: fundus firm below umbilicus, nontender Perineum: healing Ext: nontender Discharge Plan Discharge Attending physician on discharge: Omer Alvarado Discharging Clinician: Omer Alvarado Anticipated Discharge Date/Time: 07/14/20 14:28 Patient Disposition: Home, Self-Care Activity: may shower, as tolerated and pelvic rest Diet: regular Wound Care Instructions: follow printed instructions Discharge Instructions: Education: Mom and Baby Guide Given to: Mother Follow-Up: Call your delivering provider's office for an appointment to be seen in: 2 Weeks for blood pressure check and visit Mom and baby should come to the [facility] for the follow-up appointment. Appointment Date/Time: July 15, 2020 at 3:00pm What to expect at your follow-up visit: Blood Pressure Check Physical Assessment Call [phone] if you are unable to keep your appointment time. BREAST CARE: * Wear a snug supportive bra. * For engorgement discomfort: Bottle Feeding: * May apply ice packs EPISIOTOMY/PERINEAL CARE: * Until bleeding stops, use your galindo bottle after urinating * Change your pad frequently throughout the day * You may take sitz baths several times a day (fill your bathtub with warm water and soak for 20 minutes.) Do NOT bathe in the water * No tub baths until seen by your physician - You may shower ACTIVITY: * Rest as much as possible. * Do not exercise or lift anything heavier than your baby (such as laundry or other children.) * Avoid stairs or driving as much as possible. * Do not put anything into the vagina. No douching, tampons, or sexual activity until seen by physician. NOTIFY PHYSICIAN IF YOU HAVE ANY QUESTIONS OR IF ANY OF THE FOLLOWING SYMPTOMS OCCUR: * If your vaginal area becomes red, swollen, or more painful than what you have experienced in the hospital. * If your vaginal bleeding becomes foul smelling. * If your vaginal bleeding becomes more heavy than a period or if your bleeding changes from pink to bright red. However, you may pass an occasional walnut-sized clot once or twice for the first week . * If you experience a sharp, shooting pain in your calves. * If you discover a hard, reddened area on your breast or if you experience flu-like symptoms. DIET: * Eat regular, well-balanced meals. * Drink plenty of fluids daily. Stand Alone Forms: General Discharge Information Follow-up/Referrals: Omer Alvarado MD [Physician] - 2 Weeks (Call for appointment) Discharge Medications: Continued PNV 119-iron fum-folic acid 29 mg iron- 1 mg tablet 1 tablet PO DAILY Qty: 90 RF: 3 sertraline 50 mg tablet 50 mg PO DAILY RF: 0 sertraline 100 mg tablet 100 mg PO DAILY RF: 0 ferrous sulfate 325 mg (65 mg iron) tablet 325 mg PO DAILY Qty: 30 RF: 3 Date of admission: 07/12/20 16:08 Primary Care Provider: PHYSICIAN,CALL CIRCUIT WORKER Admitting Provider: Omer Alvarado Attending physician on admission: Omer Alvarado Condition: Stable
== END 2020-07-14 16:00 | disposition home or self-care (01) | DRG 560 ==
LOC: ANHLDR 16:13 → ANHOB2 07-13 05:29
PROVIDERS: Admitting Provider Obstetrics & Gynecology; Visit Provider Obstetrics & Gynecology
DX: O26.86 Pruritic urticarial papules and plaques of pregnancy (PUPPP) (principal); Z37.0 Single live birth; Z3A.39 39 weeks gestation of pregnancy; O99.334 Smoking (tobacco) complicating childbirth; F17.210 Nicotine dependence, cigarettes, uncomplicated; O99.324 Drug use complicating childbirth; F12.90 Cannabis use, unspecified, uncomplicated; O99.824 Streptococcus B carrier state complicating childbirth; O99.344 Other mental disorders complicating childbirth; F41.8 Other specified anxiety disorders; O99.52 Diseases of the respiratory system complicating childbirth; J45.909 Unspecified asthma, uncomplicated; O99.02 Anemia complicating childbirth; D64.9 Anemia, unspecified
CPT/HCPCS: 36415; 80053; 80307; 84112; 84550; 85014; 85018; 85025; 85027; 86592; 86850; 86900; 86901; 90710; A9270; J0290; J1050; J2405; J2590; J2795; J7120

== ENCOUNTER 2023-02-07 16:53 | Emergency (ER) | payer OTHER, SELFPAY ==
[2023-02-07 16:55] VITALS: BP 142/92; PULSE 109; TEMP 36.8; O2SAT 97
--- NOTE | 2023-02-07 17:12 | ED.GENADULT ---
HPI - General Adult General Chief complaint: Wound/Laceration Stated complaint: sore on finger Time Seen by Provider: 02/07/23 17:12 Source: patient Mode of arrival: ambulatory Limitations: no limitations History of Present Illness HPI narrative: patient is a 37-year-old white female complains of swelling around her right index finger nail since yesterday which is gotten worse she rates as 8/10 pain denies any loss of function of her fingers or hands. Denies any problems eating drinking stooling or voiding. Rash or itching lumps or bumps or any other swelling. Denies any dizziness lightheadedness bleeding or bruising. She has been soaking in Epson salts and tried to squeeze it. Denies any cough sore throat runny nose shortness of breath or fever. Allergies none past medical history noncontributory Related Data Home Medications Medication Instructions Recorded Confirmed aripiprazole 5 mg tablet (Abilify) 5 mg PO DAILY 02/07/23 02/07/23 bupropion HCl 300 mg 24 hr tablet, 300 mg PO DAILY 02/07/23 02/07/23 extended release (Wellbutrin XL) venlafaxine 150 mg 150 mg PO DAILY 02/07/23 02/07/23 capsule,extended release 24 hr Allergies Allergy/AdvReac Type Severity Reaction Status Date / Time No Known Allergies Allergy Mild Verified 02/07/23 16:59 Review of Systems Review of Systems: All systems reviewed & are unremarkable except as noted in HPI and below PMFSH Past Medical History Medical History (Updated 02/07/23 @ 17:27 by Reynaldo Pisano MD) Anemia Anxiety Asthma Depression Surgical History Surgical History No significant past surgical history Family History Family History Grandparent Diabetes mellitus Heart attack Social History Social History Years smoked: 12 Smoking status: Former smoker Tobacco type: cigarettes Alcohol intake: never Substance use: current Substance use type: marijuana Last use: Jun 2020 Gender identity (if verbalized by the patient): Female Sexual Orientation (if Verbalized by the Patient): Straight or Heterosexual Spiritual care concerns: No Exam Narrative: ? White patient no apparent distress.? Head normocephalic, atraumatic.? Eyes conjunctiva pink sclera nonicteric.? ? Extremities no cyanosis clubbing. Right index finger paronychia moderate swelling and pustule with full range of motion. Normal capillary refill.? Skin is warm and dry without rashes.? Neurological patient is alert and oriented x4.? Motor and sensory grossly intact.? Gait is normal. Course Vital Signs Vital signs: Vital Signs Temperature 36.8 C 02/07/23 16:55 Pulse Rate 109 H 02/07/23 16:55 Blood Pressure 142/92 H 02/07/23 16:55 Pulse Oximetry 97 02/07/23 16:55 Oxygen Delivery Room Air 02/07/23 16:55 Temperature 36.8 C 02/07/23 16:55 Pulse Rate 109 H 02/07/23 16:55 Blood Pressure 142/92 H 02/07/23 16:55 Pulse Oximetry 97 02/07/23 16:55 Oxygen Delivery Room Air 02/07/23 16:55 Medical Decision Making Differential Diagnosis Differential Diagnosis: Patient Patient was placed in room 3 history and physical was performed. And her paronychia was drained after cleansing the area with Betadine a 11. Blade was used to express moderate amount of pus. Patient felt much better afterwards pain was down to a 3 Band-Aid was applied. Independent Historian: ? Differential Dx includes but not limited to: Paronychia felon Medications were Reviewed. Medications treatments given: Script for Augmentin 875 twice a day for 3 days was sent to her pharmacy Independently Interpreted by me:? External Source Review:?? Medical conditions/social Situation Impacting Patients Care:?? Shared decision Making:? evaluation was discussed with patient all ques
[2023-02-07 17:28] VITALS: BP 140/88; PULSE 98; RESP 20; TEMP 36.9; O2SAT 97
== END 2023-02-07 17:34 | disposition home or self-care (01) ==
LOC: CHSED 17:32
PROVIDERS: Emergency Provider Emergency Medicine; PCP Physician Assistant
DX: L03.011 Cellulitis of right finger (principal); F41.9 Anxiety disorder, unspecified; F32.A Depression, unspecified; Z87.891 Personal history of nicotine dependence
CPT/HCPCS: 99283

== ENCOUNTER 2023-02-12 10:59 | Emergency (ER) | payer OTHER, SELFPAY ==
[2023-02-12 10:59] VITALS: BP 136/77; PULSE 93; RESP 16; TEMP 36.4; O2SAT 98
--- NOTE | 2023-02-12 11:06 | ED.SKABFB ---
HPI - Skin/Abscess/Foreign Bdy General Chief complaint: Skin/Abscess/Foreign Body Stated complaint: abscess on right 4th finger Time Seen by Provider: 02/12/23 11:06 Source: patient and RN notes reviewed Mode of arrival: ambulatory Limitations: no limitations History of Present Illness HPI narrative: Patient was here 3 days ago and had her paronychia incised and drained. She has only been on antibiotics amoxicillin for 3 days. She says she has been soaking it and trying to keep the drainage open but it seems to be persistent not going away she is concerned only 3 days of antibiotics did not help. complaint: abscess/boil Onset (ago): day(s) (4) Tetanus up to date: yes Location: R hand Severity: moderate Quality: burning and aching Pain Consistency: constant Relieving factors: none Exacerbating factors: none Associated symptoms: denies other symptoms Treatments prior to arrival: none Related Data Home Medications Medication Instructions Recorded Confirmed aripiprazole 5 mg tablet (Abilify) 5 mg PO DAILY 02/07/23 02/12/23 bupropion HCl 300 mg 24 hr tablet, 300 mg PO DAILY 02/07/23 02/12/23 extended release (Wellbutrin XL) venlafaxine 150 mg 150 mg PO DAILY 02/07/23 02/12/23 capsule,extended release 24 hr Allergies Allergy/AdvReac Type Severity Reaction Status Date / Time No Known Allergies Allergy Mild Verified 02/12/23 11:16 Review of Systems Review of Systems: All systems reviewed & are unremarkable except as noted in HPI and below Constitutional: Constitutional: Denies chills and Denies fever(s) PMFSH Past Medical History Medical History (Updated 02/12/23 @ 11:16 by Paulo Hagen MD) Anemia Anxiety Asthma Depression Surgical History Surgical History No significant past surgical history Family History Family History Grandparent Diabetes mellitus Heart attack Social History Social History Years smoked: 12 Smoking status: Former smoker Tobacco type: cigarettes Alcohol intake: never Substance use: current Substance use type: marijuana Last use: Jun 2020 Gender identity (if verbalized by the patient): Female Sexual Orientation (if Verbalized by the Patient): Straight or Heterosexual Spiritual care concerns: No Exam Const: General: healthy appearing, no acute distress and alert Nutritional Appearance: well nourished and obese Orientation/consciousness: patient oriented x3 Limitations: no limitations Other: Female tech in room during examination. HENMT: Head: normal to inspection Ears: external ears normal Face/Nose/Sinus: Normal external nose present Face and sinus: normal facial exam Mouth: Yes moist mucous membranes Eyes: Conjunctivae: conjunctivae normal Pupils: Equal, round and reactive pupils present EOM: EOMs intact bilaterally Neck: Neck: normal visual inspection Resp: Effort & Inspection: normal respiratory effort Auscultation: clear to auscultation bilaterally Cardio: Rate: regular rate Rhythm: regular rhythm GI: Auscultation: normal bowel sounds Back/Spine/Pelvis: Cervical Spine: cervical ROM normal Thoracic/Lumbar Spine: thoraco-lumbar ROM normal Skin: General skin exam: normal color Lesions: lesion noted ( Base of the dorsal finger nail with purulent drainage) pustule right distal 4th finger color red, consistency soft and fluctuant and tender Rashes: no rashes Neuro: General: patient oriented x3, moves all extremities, no focal motor deficits and CN's II-XI intact bilaterally Speech: normal speech Gait exam (Neuro): Normal gait present Extrem: General: normal to inspection and no clubbing, cyanosis or edema Psych: Mental Status: mental status grossly normal Affect: normal affect Attitude: cooperative MDM - Skin/Abscess/Foreign Bdy Differential
== END 2023-02-12 11:22 | disposition home or self-care (01) ==
PROVIDERS: Emergency Provider Emergency Medicine; PCP Physician Assistant
DX: L03.011 Cellulitis of right finger (principal); F41.9 Anxiety disorder, unspecified; F32.A Depression, unspecified; Z79.899 Other long term (current) drug therapy; Z87.891 Personal history of nicotine dependence
CPT/HCPCS: 99283

== ENCOUNTER 2024-08-20 23:19 | Emergency (ER) | payer MEDICAID, SELFPAY ==
--- OUTSIDE RECORDS SUMMARY | 2024-08-20 23:21 | XMS_ITS | Clinical Summary ---
Author Organization [facility] Address [address] [place] [phone] Phone Care Team Providers Care Roulette Dealer Name Role Phone Omer Alvarado MD Primary Care Provider [phone] Social History Tobacco Use Types Packs/Day Years Used Date Smoking Tobacco: Never Assessed Comments Unknown Sex and Gender Information Value Date Recorded Sex Assigned at Not on file Legal Sex Female 1:58 PM CDT Gender Identity Not on file Sexual Orientation Not on file Plan of Treatment Health Maintenance Due Date Last Done Comments DTAP/TDAP/TD VACCINES (1 - Tdap) 2005 HEPATITIS B VACCINES (1 of 3 - 19+ 3-dose series) 2005 CERVICAL CANCER SCREENING 2016 INFLUENZA VACCINE (#1) 2024 HPV VACCINES Aged Out No longer eligi ble based on patient's age to complete this topic PNEUMOCOCCAL VACCINE 0-49 YEARS Aged Out No longer eligible based on patient's age to complete this topic Insurance PLAN MEDICAID Care Teams Roulette Dealer Relationship Specialty Start Date End Date Omer Alvarado MD [address] [id number] PCP - General Obstetrics and Gynecology 03/03/20
[2024-08-20 23:22] VITALS: BP 135/84; PULSE 88; RESP 18; TEMP 36; O2SAT 100
--- NOTE | 2024-08-20 23:32 | ED.SKABFB ---
HPI - Skin/Abscess/Foreign Bdy General Chief complaint: Skin/Abscess/Foreign Body Stated complaint: rash Source: patient Mode of arrival: ambulatory Limitations: no limitations History of Present Illness HPI narrative: this is a 38-year-old female with no significant past medical history presents with a rash that is itchy located on her arms and legs for the last couple of weeks with no shortness of breath no wheezing no nausea vomiting or abdominal pain no fever chills. complaint: rash Onset (ago): week(s) Location: LUE, RUE, L hand, R hand, LLE, RLE, L foot and R foot Severity: mild Related Data Home Medications ?Medication ?Instructions ?Recorded ?Confirmed ?Last Taken ?Type aripiprazole 5 mg tablet (Abilify) 5 mg PO DAILY 02/07/23 02/12/23 Unknown History bupropion HCl 300 mg 24 hr tablet, 300 mg PO DAILY 02/07/23 02/12/23 Unknown History extended release (Wellbutrin XL) venlafaxine 150 mg 150 mg PO DAILY 02/07/23 02/12/23 Unknown History capsule,extended release 24 hr Allergies Allergy/AdvReac Type Severity Reaction Status Date / Time No Known Allergies Allergy Mild Verified 08/20/24 23:26 Review of Systems Review of Systems: All systems reviewed & are unremarkable except as noted in HPI and below PMFSH Past Medical History Medical History (Updated 08/20/24 @ 23:35 by uJlián Chatterjee MD) Depression Asthma Anxiety Anemia Surgical History Surgical History No significant past surgical history Family History Family History Grandparent Diabetes mellitus Heart attack Social History Social History Years smoked: 12 Smoking status: Former smoker Tobacco type: cigarettes Alcohol intake: never Substance use: current Substance use type: marijuana Last use: Jun 2020 Gender identity (if verbalized by the patient): Female Sexual Orientation (if Verbalized by the Patient): Straight or Heterosexual Spiritual care concerns: No Exam Const: General: healthy appearing Nutritional Appearance: well nourished Orientation/consciousness: patient oriented x3 Limitations: no limitations Resp: Effort & Inspection: normal respiratory effort Auscultation: clear to auscultation bilaterally Cardio: Rate: regular rate Rhythm: regular rhythm GI: Auscultation: normal bowel sounds Skin: Other: Rash with chin located legs Extrem: General: normal to inspection Course Course Emergency Course: Depo-Medrol 80mg IM administered and medication sent patient's local pharmacy. Vital Signs Vital signs: Vital Signs Temperature 36.0 C L 08/20/24 23:22 Pulse Rate 88 08/20/24 23:22 Respiratory Rate 18 08/20/24 23:22 Blood Pressure 135/84 08/20/24 23:22 Pulse Oximetry 100 08/20/24 23:22 Oxygen Delivery Room Air 08/20/24 23:22 Temperature 36.0 C L 08/20/24 23:22 Pulse Rate 88 08/20/24 23:22 Respiratory Rate 18 08/20/24 23:22 Blood Pressure 135/84 08/20/24 23:22 Pulse Oximetry 100 08/20/24 23:22 Oxygen Delivery Room Air 08/20/24 23:22 Critical Care Time Critical Care Time Critical Care Time: No Discharge Plan Discharge Clinical Impression: Contact dermatitis Qualifiers: Contact dermatitis type: unspecified Contact dermatitis trigger: unspecified trigger Qualified Code(s): L25.9 - Unspecified contact dermatitis, unspecified cause Patient Disposition: Home, Self-Care Condition: Stable Instructions: Antibiotic Form, Contact Dermatitis (ED) Additional Instructions: advised take medication as prescribed follow with primary care physician within 1 week for further evaluation and treatment. Patient Language: Greenlandic Prescriptions: New methylprednisolone [Medrol (Pratik)] 4 mg tablets,dose pack See Rx Instructions .ROUTE .COMPLEX Qty: 21 0RF Rx Instructions: for 6 days triamcinolone acetonide 0.1 % ointment 1 applic topical TID Qty: 30 0RF Rx Instructions: apply to bilateral arms bilateral legs and other affected areas famotidine [Pepcid] 20 mg tablet 20 mg PO BID Qty: 14 0RF No Action venlafaxine 150 mg capsule,extended release 24hr 150 mg PO DAILY aripiprazole [Abilify] 5 mg tablet 5 mg PO DAILY bupropion HCl [Wellbutrin XL] 300 mg tablet extended release 24 hr 300 mg PO DAILY amoxicillin-pot clavulanate 875-125 mg tablet 1 tablet PO Q12H 3 Days Qty: 6 0RF clindamycin HCl 300 mg capsule 300 mg PO TID 10 Days Qty: 30 0RF Follow-up/Referrals: Yosvany Evans M.D. [Primary Care Provider] - Time of Disposition: 23:37
[2024-08-20] MEDS: methylPREDNISolone ACETATE 40 MG/ML VIAL 80 MG IM (23:40)
== END 2024-08-20 23:54 | disposition home or self-care (01) ==
PROVIDERS: Emergency Provider Emergency Medicine; PCP Family Medicine
DX: L25.9 Unspecified contact dermatitis, unspecified cause (principal); Z87.891 Personal history of nicotine dependence
CPT/HCPCS: 96372; 99283; J1010

== ENCOUNTER 2024-08-22 15:48 | Emergency (ER) | payer MEDICAID, SELFPAY ==
[2024-08-22 15:48] VITALS: BP 114/72; PULSE 108; RESP 14; TEMP 36.3; O2SAT 100
--- OUTSIDE RECORDS SUMMARY | 2024-08-22 15:51 | XMS_ITS | Clinical Summary ---
Author Organization [facility] Address [address] [place] [phone] Phone Care Team Providers Care Parts Room Clerk Name Role Phone Omer Alvarado MD Primary Care Provider [phone] Social History Tobacco Use Types Packs/Day Years [...] this topic Insurance PLAN MEDICAID Care Teams Parts Room Clerk Relationship Specialty Start Date End Date Omer Alvarado MD [address] [phone] PCP - General Obstetrics and Gynecology 03/03/20
--- NOTE | 2024-08-22 16:15 | ED_ITS ---
HPI - General Adult General Chief complaint: Unspecified Stated complaint: urine drug screen Time Seen by Provider: 08/22/24 15:51 Source: patient Mode of arrival: ambulatory Limitations: no limitations History of Present Illness HPI narrative: Patient here today for a urine drug screen as mandated by her employer. Otherwise no abnormalities. Onset (ago): hour(s) Related Data Home Medications ?Medication ?Instructions ?Recorded ?Confirmed ?Last Taken ?Type aripiprazole 5 mg tablet (Abilify) 5 mg PO DAILY 02/07/23 02/12/23 Unknown History bupropion HCl 300 mg 24 hr tablet, 300 mg PO DAILY 02/07/23 02/12/23 Unknown History extended release (Wellbutrin XL) venlafaxine 150 mg 150 mg PO DAILY 02/07/23 02/12/23 Unknown History capsule,extended release 24 hr Allergies Allergy/AdvReac Type Severity Reaction Status Date / Time No Known Allergies Allergy Mild Verified 08/22/24 15:55 Review of Systems Review of Systems: All systems reviewed & are unremarkable except as noted in HPI and below PMFSH Past Medical History Medical History (Updated 08/22/24 @ 16:19 by Julián Chatterjee MD) Depression Asthma Anxiety Anemia Surgical History Surgical History No significant past surgical history Family History Family History Grandparent Diabetes mellitus Heart attack Social History Social History Years smoked: 12 Smoking status: Former smoker Tobacco type: cigarettes Alcohol intake: never Substance use: current Substance use type: marijuana Last use: Jun 2020 Gender identity (if verbalized by the patient): Female Sexual Orientation (if Verbalized by the Patient): Straight or Heterosexual Spiritual care concerns: No Exam Const: General: cooperative, healthy appearing, comfortable, no acute distress, well developed, alert, awake and Physically active Eyes: General: appearance normal, both eyes and all related structures Neck: Neck: normal visual inspection, full ROM and no lymphadenopathy Chest: Chest palpation & inspection: normal inspection of the chest and normal palpation of entire chest wall Resp: Effort & Inspection: normal respiratory effort and able to speak in complete sentences Auscultation: clear to auscultation bilaterally Cardio: Palpation: normal PMI Rate: regular rate Rhythm: regular rhythm Heart sounds: S1 normal heart sound present and S2 normal heart sound present GI: Inspection: normal to inspection Course Course Emergency Course: Urine drug screen performed and reviewed with patient. Vital Signs Vital signs: Vital Signs Temperature 36.3 C L 08/22/24 15:48 Pulse Rate 108 H 08/22/24 15:48 Respiratory Rate 14 08/22/24 15:48 Blood Pressure 114/72 08/22/24 15:48 Pulse Oximetry 100 08/22/24 15:48 Oxygen Delivery Room Air 08/22/24 15:48 Temperature 36.3 C L 08/22/24 15:48 Pulse Rate 108 H 08/22/24 15:48 Respiratory Rate 14 08/22/24 15:48 Blood Pressure 114/72 08/22/24 15:48 Pulse Oximetry 100 08/22/24 15:48 Oxygen Delivery Room Air 08/22/24 15:48 Medical Decision Making Vital Signs Vital Signs: Vital Signs Temperature 36.3 C L 08/22/24 15:48 Pulse Rate 108 H 08/22/24 15:48 Respiratory Rate 14 08/22/24 15:48 Blood Pressure 114/72 08/22/24 15:48 Pulse Oximetry 100 08/22/24 15:48 Oxygen Delivery Room Air 08/22/24 15:48 Temperature 36.3 C L 08/22/24 15:48 Pulse Rate 108 H 08/22/24 15:48 Respiratory Rate 14 08/22/24 15:48 Blood Pressure 114/72 08/22/24 15:48 Pulse Oximetry 100 08/22/24 15:48 Oxygen Delivery Room Air 08/22/24 15:48 Lab Data Labs: Lab Results 08/22/24 Range/Units 15:54 Urine Opiates Screen Pending Urine Methadone Screen Pending Ur Barbiturates Screen Pending Ur Phencyclidine Scrn Pending Ur Amphetamine Screen Pending U Benzodiazepines Scrn Pending Urine Cocaine Screen Pending U Cannabinoids Screen Pending Critical Care Time Critical Care Time Critical Care Time: No Discharge Plan Discharge Clinical Impression: Normal exam Patient Disposition: Home, Self-Care Condition: Stable Instructions: Antibiotic Form, Normal Exam (ED) Additional Instructions: advised to follow-up primary care physician as needed. Patient Language: Macedonian Prescriptions: No Action venlafaxine 150 mg capsule,extended release 24hr 150 mg PO DAILY aripiprazole [Abilify] 5 mg tablet 5 mg PO DAILY bupropion HCl [Wellbutrin XL] 300 mg tablet extended release 24 hr 300 mg PO DAILY amoxicillin-pot clavulanate 875-125 mg tablet 1 tablet PO Q12H 3 Days Qty: 6 0RF methylprednisolone [Medrol (Pratik)] 4 mg tablets,dose pack See Rx Instructions .ROUTE .COMPLEX Qty: 21 0RF Rx Instructions: for 6 days triamcinolone acetonide 0.1 % ointment 1 applic topical TID Qty: 30 0RF Rx Instructions: apply to bilateral arms bilateral legs and other affected areas famotidine [Pepcid] 20 mg tablet 20 mg PO BID Qty: 14 0RF clindamycin HCl 300 mg capsule 300 mg PO TID 10 Days Qty: 30 0RF Follow-up/Referrals: Omer Alvarado MD [Primary Care Provider] -
[2024-08-22 16:24] LABS: Amphetamine Screen Urine Negative (Negative); Barbiturate Screen Urine Negative (Negative); Benzodiazepines Screen Urine Negative (Negative); Cannabinoid Screen Urine Negative (Negative); Cocaine Screen Urine Negative (Negative); Methadone Screen Urine Negative (Negative); Opiate Screen Urine Negative (Negative); Phencyclidine Screen Urine Negative (Negative)
== END 2024-08-22 16:38 | disposition home or self-care (01) ==
PROVIDERS: Emergency Provider Emergency Medicine; PCP Obstetrics & Gynecology
DX: Z02.89 Encounter for other administrative examinations (principal); Z87.891 Personal history of nicotine dependence
CPT/HCPCS: 80307; 99283

== ENCOUNTER 2024-10-15 01:46 | Emergency (ER) | payer OTHER, SELFPAY ==
--- OUTSIDE RECORDS SUMMARY | 2024-10-15 01:48 | XMS_ITS | Clinical Summary ---
Author Organization [facility] Address [address] [place] [phone] Phone Care Team Providers Care Collar Folder Operator Name Role Phone Omer Alvarado MD Primary Care Provider [phone] Social History Tobacco Use Types Packs/Day Years [...] of 3 - 19+ 3-dose series) 2005 HPV/Cotest (21-29) 11/22/2007 CERVICAL CANCER SCREENING 2016 HPV/Cotest (30-65) 2016 PAP SMEAR 2016 INFLUENZA VACCINE (#1) 2024 HPV VACCINES Aged Out No longer eligi ble based on patient's age to complete this topic Insurance [facility] PLAN MEDICAID Care Teams Collar Folder Operator Relationship Specialty Start Date End Date Omer Alvarado MD [address] [phone] PCP - General Obstetrics and Gynecology 03/03/20
[2024-10-15 01:50] VITALS: BP 157/98; PULSE 105; RESP 18; TEMP 36.3; O2SAT 98
--- NOTE | 2024-10-15 01:55 | ED.SKABFB ---
HPI - Skin/Abscess/Foreign Bdy General Chief complaint: Skin/Abscess/Foreign Body Stated complaint: rash Time Seen by Provider: 10/15/24 01:54 Source: patient Mode of arrival: ambulatory Limitations: no limitations History of Present Illness HPI narrative: 8-year-old female with a history of anxiety / depression, asthma, 7 months ,recently diagnosed contact dermatitis on 08/20/2024 presents to the ED with -- generalized rash-- maculopapular rash on extremities and lower back. It is extremely itchy. The patient has had scabies in the past which did respond to permethrin. During a previous ED visit on 08/20/2024 the patient received steroids without any improvement. Patient was recently treated for UTI with Keflex. She has had the rash prior to taking the antibiotic. complaint: rash Onset (ago): month(s) Tetanus up to date: yes Location: generalized Severity: moderate Quality: pruritic Pain Consistency: constant Relieving factors: none Exacerbating factors: none Associated symptoms: denies other symptoms Treatments prior to arrival: corticosteroid Related Data Home Medications ?Medication ?Instructions ?Recorded ?Confirmed ?Last Taken ?Type aripiprazole 5 mg tablet (Abilify) 5 mg PO DAILY 02/07/23 02/12/23 Unknown History bupropion HCl 300 mg 24 hr tablet, 300 mg PO DAILY 02/07/23 02/12/23 Unknown History extended release (Wellbutrin XL) venlafaxine 150 mg 150 mg PO DAILY 02/07/23 02/12/23 Unknown History capsule,extended release 24 hr Allergies Allergy/AdvReac Type Severity Reaction Status Date / Time No Known Allergies Allergy Mild Verified 10/15/24 02:17 Review of Systems Review of Systems: All systems reviewed & are unremarkable except as noted in HPI and below PMFSH Past Medical History Medical History (Updated 10/15/24 @ 02:11 by Feliberto Martínez MD) Depression Asthma Anxiety Anemia Surgical History Surgical History No significant past surgical history Family History Family History Grandparent Diabetes mellitus Heart attack Social History Social History Years smoked: 12 Smoking status: Former smoker Tobacco type: cigarettes Alcohol intake: never Substance use: current Substance use type: marijuana Last use: Jun 2020 Gender identity (if verbalized by the patient): Female Sexual Orientation (if Verbalized by the Patient): Straight or Heterosexual Spiritual care concerns: No Exam Narrative: Blood pressure 157/98 with a pulse of 105. 98% on room air. Const: General: healthy appearing, no acute distress and alert Nutritional Appearance: well nourished Orientation/consciousness: patient oriented x3 Limitations: no limitations HENMT: Head: normal to inspection Ears: external ears normal Face/Nose/Sinus: Normal external nose present Face and sinus: normal facial exam Mouth: Yes Normal oral and palatal mucosa present Throat: posterior oropharynx normal Eyes: Conjunctivae: conjunctivae normal Pupils: Equal, round and reactive pupils present EOM: EOMs intact bilaterally Direct Ophthalmoscopy: no photophobia Neck: Neck: normal visual inspection and no lymphadenopathy Chest: Chest palpation & inspection: normal inspection of the chest Resp: Effort & Inspection: normal respiratory effort Auscultation: rhonchi Cardio: Rate: regular rate Rhythm: regular rhythm GI: Auscultation: normal bowel sounds Other: Gravid uterus FHS : General: Yes no CVA tenderness Back/Spine/Pelvis: Back: no CVA tenderness Skin: General skin exam: normal color Other: generalized maculopapular rash extremities, lower back. No rash noted in the interdigital region. No rash noted on the buttocks. Neuro: General: patient oriented x3, moves all extremities, no meningeal signs, no focal motor deficits and CN's II-XI intact bilaterally Cranial nerves: Yes Nystagmus not present Speech: normal speech Gait exam (Neuro): Normal gait present Extrem: General: normal to inspection and no clubbing, cyanosis or edema Psych: Mental Status: mental status grossly normal Affect: normal affect Attitude: cooperative Course Course Emergency Course: Generalized maculopapular rash to scabies hypertension Vital Signs Vital signs: Vital Signs Temperature 36.3 C L 10/15/24 01:50 Pulse Rate 105 H 10/15/24 01:50 Respiratory Rate 18 10/15/24 01:50 Blood Pressure 157/98 H 10/15/24 01:50 Pulse Oximetry 98 10/15/24 01:50 Oxygen Delivery Room Air 10/15/24 01:50 Temperature 36.3 C L 10/15/24 01:50 Pulse Rate 105 H 10/15/24 01:50 Respiratory Rate 18 10/15/24 01:50 Blood Pressure 157/98 H 10/15/24 01:50 Pulse Oximetry 98 10/15/24 01:50 Oxygen Delivery Room Air 10/15/24 01:50 MDM - Skin/Abscess/Foreign Bdy MDM Narrative Medical decision making narrative: generalized rash secondary to scabies hypertension Differential Diagnosis Differential diagnosis: Likely contact dermatitis Medical Records Attestation: I reviewed the patient's medical records. Lab Data Labs: Lab Results 10/15/24 Range/Units 02:00 Urine Color Light yellow (Yellow) Urine Appearance Clear (Clear) Urine pH 6.0 (5.0-8.0) Ur Specific [place] 1.010 (1.010-1.020) Urine Protein Negative (Negative) Urine Glucose (UA) Negative (Negative) Urine Ketones Negative (Negative) Ur Blood (Man) Negative (Negative) Urine Nitrate Negative (Negative) Urine Bilirubin Negative (Negative) Urine Urobilinogen 0.2 (0.2-1.0) mg/dL Leukocyte Esterase Rfl Negative (Negative) ELIAN/UL Discharge Plan Discharge Clinical Impression: Scabies Qualifiers: Weeks of gestation: 21 weeks Qualified Code(s): Z3A.21 - 21 weeks gestation of Patient Disposition: Home Condition: Stable Instructions: Antibiotic Form, (ED), Scabies (ED) Patient Language: Danish Prescriptions: New permethrin 5 % cream 1 applic topical Q14D Qty: 60 0RF Rx Instructions: apply second treatment 14 days after first treatment if live lice remain No Action venlafaxine 150 mg capsule,extended release 24hr 150 mg PO DAILY aripiprazole [Abilify] 5 mg tablet 5 mg PO DAILY bupropion HCl [Wellbutrin XL] 300 mg tablet extended release 24 hr 300 mg PO DAILY amoxicillin-pot clavulanate 875-125 mg tablet 1 tablet PO Q12H 3 Days Qty: 6 0RF methylprednisolone [Medrol (Pratik)] 4 mg tablets,dose pack See Rx Instructions .ROUTE .COMPLEX Qty: 21 0RF Rx Instructions: for 6 days triamcinolone acetonide 0.1 % ointment 1 applic topical TID Qty: 30 0RF Rx Instructions: apply to bilateral arms bilateral legs and other affected areas famotidine [Pepcid] 20 mg tablet 20 mg PO BID Qty: 14 0RF clindamycin HCl 300 mg capsule 300 mg PO TID 10 Days Qty: 30 0RF Follow-up/Referrals: UNKNOWN,DOCTOR [Non-Staff] - Time of Disposition: 02:28
[2024-10-15 02:23] LABS: Add Urine Microscopic? NO; Appearance Urine Clear (Clear); Bilirubin Urine Negative (Negative); Blood Urine Negative (Negative); Color Urine Light Yellow (Yellow); Glucose Urine UA Negative (Negative); Ketones Urine Negative (Negative); Leukocyte Esterase Ur Negative LEU/UL (Negative); Nitrate Urine Negative (Negative); Protein Urine Negative (Negative); Urobilinogen Urine 0.2 mg/dL (0.2-1.0)
== END 2024-10-15 02:44 | disposition home or self-care (01) ==
PROVIDERS: Emergency Provider Internal Medicine Critical Care Medicine; PCP Family Medicine
DX: O26.892 Other specified pregnancy related conditions, second trimester (principal); Z87.891 Personal history of nicotine dependence; B86 Scabies; Z3A.21 21 weeks gestation of pregnancy
CPT/HCPCS: 81003; 99284

== ENCOUNTER 2025-01-27 12:01 | Emergency (ER) | payer OTHER, SELFPAY ==
[2025-01-27 12:01] VITALS: BP 126/84; PULSE 83; RESP 16; TEMP 36.7; O2SAT 97
--- OUTSIDE RECORDS SUMMARY | 2025-01-27 12:07 | XMS_ITS | Clinical Summary ---
Author Organization [facility] Address [address] [place] [id number] Phone Care Team Providers Care Gate Tender Name Role Phone Omer Alvarado MD Primary Care Provider [phone] Social History Tobacco Use Types Packs/Day Years Used Date Smoking Tobacco: Never Assessed Comments Unknown Sex and Gender Information Value Date Recorded Sex Assigned at Not on file Legal Sex Female 1:58 PM CDT Gender Identity Not on file Sexual Orientation Not on file Plan of Treatment Health Maintenance Due Date Last Done Comments HPV VACCINES (1 - 3-dose series) 2001 DTAP/TDAP/TD VACCINES (1 - Tdap) 2005 HEPATITIS B VACCINES (1 of 3 - 19+ 3-dose series) 12/2005 HPV/Cotest (21-29) 11/22/2007 CERVICAL CANCER SCREENING 2016 HPV/Cotest (30-65) 2016 PAP SMEAR 2016 INFLUENZA VACCINE (#1) [address] [place] [place] [address] PLAN MEDICAID Care Teams Gate Tender Relationship Specialty Start Date End Date Omer Alvarado MD [address] [facility] [address] [place] [id number] PCP - General Obstetrics and Gynecology 03/03/20
--- NOTE | 2025-01-27 12:13 | ED_ITS ---
HPI - Skin/Abscess/Foreign Bdy General Chief complaint: Skin/Abscess/Foreign Body Stated complaint: rash Time Seen by Provider: 01/27/25 12:13 Source: patient Mode of arrival: ambulatory Limitations: no limitations History of Present Illness HPI narrative: 39-year-old female with the history anxiety, depression, asthma, anemia as maculopapular rash which was 1st noted in . The patient received bite with permethrin and steroids without any improvement. The patient continues to have this rash after delivery. The rash is diffuse and it is maculopapular. lesions are grouped. Intensely pruritic patient is not on any medication. complaint: rash Onset (ago): month(s) ( 3-4 months) Tetanus up to date: yes Location: generalized Severity: moderate Quality: pruritic Relieving factors: none Exacerbating factors: none Context: none Associated symptoms: denies other symptoms Treatments prior to arrival: other ( permethrin, steroids) Related Data Home Medications ?Medication ?Instructions ?Recorded ?Confirmed ?Last Taken ?Type aripiprazole 5 mg tablet (Abilify) 5 mg PO DAILY 02/07/23 02/12/23 Unknown History bupropion HCl 300 mg 24 hr tablet, 300 mg PO DAILY 02/07/23 02/12/23 Unknown History extended release (Wellbutrin XL) venlafaxine 150 mg 150 mg PO DAILY 02/07/23 02/12/23 Unknown History capsule,extended release 24 hr Allergies Allergy/AdvReac Type Severity Reaction Status Date / Time No Known Allergies Allergy Mild Verified 01/27/25 12:07 Review of Systems Review of Systems: All systems reviewed & are unremarkable except as noted in HPI and below [facility] Past Medical History Medical History (Updated 01/27/25 @ 12:55 by Feliberto Martínez MD) Depression Asthma Anxiety Anemia Surgical History Surgical History No significant past surgical history Family History Family History Grandparent Diabetes mellitus Heart attack Social History Social History Years smoked: 12 Smoking status: Former smoker Tobacco type: cigarettes Alcohol intake: never Substance use: current Substance use type: marijuana Last use: Jun 2020 Gender identity (if verbalized by the patient): Female Sexual Orientation (if Verbalized by the Patient): Straight or Heterosexual Spiritual care concerns: No Exam Narrative: vitals are stable. Const: General: healthy appearing and no acute distress Nutritional Appearance: well nourished Orientation/consciousness: patient oriented x3 Limitations: no limitations HENMT: Head: normal to inspection Ears: external ears normal Face/Nose/Sinus: Normal external nose present Face and sinus: normal facial exam Mouth: Yes Normal oral and palatal mucosa present Eyes: Conjunctivae: conjunctivae normal Pupils: Equal, round and reactive pupils present EOM: EOMs intact bilaterally Direct Ophthalmoscopy: no photophobia Neck: Neck: normal visual inspection, no lymphadenopathy and no meningeal signs Chest: Chest palpation & inspection: normal inspection of the chest Resp: Effort & Inspection: normal respiratory effort Auscultation: clear to auscultation bilaterally Cardio: Rate: regular rate Rhythm: regular rhythm GI: GI Palp: Yes Soft to palpation Auscultation: normal bowel sounds Other: No tenderness/ rigidity /rebound : General: Yes no CVA tenderness Back/Spine/Pelvis: Back: no CVA tenderness Skin: General skin exam: normal color Other: papular rash which has grouped all over the body. They are intensely pruritic. Some of the papules are excoriated. Neuro: General: patient oriented x3, moves all extremities, no meningeal signs, no focal motor deficits and CN's II-XI intact bilaterally Speech: normal speech Extrem: General: normal to inspection and no clubbing, cyanosis or edema Psych: Mental Status: mental status grossly normal Affect: normal affect Attitude: cooperative Course Course Emergency Course: Atopic dermatitis-- lesions have been present for 3-4 months. Will have the patient referred to Dermatology. Vital Signs Vital signs: Vital Signs Temperature 36.7 C 01/27/25 12:01 Pulse Rate 83 01/27/25 12:01 Respiratory Rate 16 01/27/25 12:01 Blood Pressure 126/84 01/27/25 12:01 Pulse Oximetry 97 01/27/25 12:01 Oxygen Delivery Room Air 01/27/25 12:01 Temperature 36.7 C 01/27/25 12:01 Pulse Rate 83 01/27/25 12:01 Respiratory Rate 16 01/27/25 12:01 Blood Pressure 126/84 01/27/25 12:01 Pulse Oximetry 97 01/27/25 12:01 Oxygen Delivery Room Air 01/27/25 12:01 MDM - Skin/Abscess/Foreign Bdy MDM Narrative Medical decision making narrative: atopic dermatitis Discharge Plan Discharge Clinical Impression: Atopic dermatitis Qualifiers: Atopic dermatitis type: unspecified Qualified Code(s): L20.9 - Atopic derm atitis, unspecified Patient Disposition: Home Condition: Stable Instructions: Antibiotic Form, Eczema (ED) Patient Language: Spanish Prescriptions: New loratadine [Claritin] 10 mg tablet 10 mg PO DAILY Qty: 30 0RF No Action venlafaxine 150 mg capsule,extended release 24hr 150 mg PO DAILY aripiprazole [Abilify] 5 mg tablet 5 mg PO DAILY bupropion HCl [Wellbutrin XL] 300 mg tablet extended release 24 hr 300 mg PO DAILY amoxicillin-pot clavulanate 875-125 mg tablet 1 tablet PO Q12H 3 Days Qty: 6 0RF methylprednisolone [Medrol (Pratik)] 4 mg tablets,dose pack See Rx Instructions .ROUTE .COMPLEX Qty: 21 0RF Rx Instructions: for 6 days triamcinolone acetonide 0.1 % ointment 1 applic topical TID Qty: 30 0RF Rx Instructions: apply to bilateral arms bilateral legs and other affected areas famotidine [Pepcid] 20 mg tablet 20 mg PO BID Qty: 14 0RF clindamycin HCl 300 mg capsule 300 mg PO TID 10 Days Qty: 30 0RF permethrin 5 % cream 1 applic topical Q14D Qty: 60 0RF Rx Instructions: apply second treatment 14 days after first treatment if live lice remain Follow-up/Referrals: Valdez Jefferson MD [Physician] - Time of Disposition: 12:56
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
--- OUTSIDE RECORDS SUMMARY | 2025-01-27 12:52 | XMS_ITS | Clinical Summary ---
Author Organization [facility] Address [address] [place] [phone] Phone Care Team Providers Care Biological Chemist Name Role Phone Omer Alvarado MD Primary Care Provider [phone] Social History Tobacco Use Types Packs/Day Years [...] SMEAR 2016 INFLUENZA VACCINE (#1) [address] [place] [address] PLAN MEDICAID Care Teams Biological Chemist Relationship Specialty Start Date End Date Omer Alvarado MD [address] [facility] [address] [place] [id number] PCP - General Obstetrics and Gynecology 03/03/20
== END 2025-01-27 13:05 | disposition home or self-care (01) ==
PROVIDERS: Emergency Provider Internal Medicine Critical Care Medicine; Referring Provider Family Medicine
DX: L20.9 Atopic dermatitis, unspecified (principal); Z87.891 Personal history of nicotine dependence
CPT/HCPCS: 99283